=== PATIENT | female | born 1955 | race Caucasian/White ===

== ENCOUNTER 2023-07-23 13:34 | Emergency (ER) | payer MEDICARE ==
[~2023-07-23] VITALS: Ht 165.1 cm; Wt 72.6 kg
[2023-07-23 16:36] VITALS: BP 173/74; PULSE 62; RESP 17; O2SAT 96
== END 2023-07-23 16:52 | disposition home or self-care (01) ==
LOC: EDH 13:34
DX: S00.83XA Contusion of other part of head, initial encounter (principal); E78.00 Pure hypercholesterolemia, unspecified; Z90.49 Acquired absence of other specified parts of digestive tract; W01.0XXA Fall on same level from slipping, tripping and stumbling without subsequent striking against object, initial encounter; Y93.89 Activity, other specified; Y92.89 Other specified places as the place of occurrence of the external cause; Y99.8 Other external cause status
CPT/HCPCS: 70450; 72125